=== PATIENT | male | born 1960 | race Caucasian/White ===

== ENCOUNTER 2016-06-19 14:07 | Emergency (ER) | payer OTHER ==
--- NOTE | ~2016-06-19 | CR72 ---
[facility] A Service of [facility] & [facility] RADIOLOGY TEXT RESULTS PATIENT: CULLEN LEAHY LOCATION: [facility] : [birth year] UNIT #: [id number] AGE: [address]: Camilo Ang MD SEX: M ORDER DR: [id number] [facility] [address] [facility]. [place], [place] [address] [id number] E MR#: [id number] Acc #: [id number] NAME: CULLEN LEAHY. : 1960 SEX: M STUDY DATE/TIME: 06/19/2016 13:30 UNIT: [facility] ROOM: STUDY DESCRIPTION: CR Chest Single View Portable Attending Physician: Camilo Ang M.D. Ordering Physician: Camilo Ang M.D. Primary Care Physician: No Primary Care Physician MEDICAL IMAGING REPORT This report is preliminary unless electronic signature is present EXAM Portable chest, 2 view, 06/19/2016. COMPARISON STUDIES 09/17/2011 HISTORY Chest pain and short of air for 1 day. FINDINGS A single AP portable view of the chest shows both lungs to be clear. The heart is normal in size. The mediastinal contour is normal. No significant bone abnormalities are seen. IMPRESSION Normal portable chest. Dictated by... Anil Alexandra M.D. THIS IS AN ELECTRONICALLY VERIFIED REPORT Anil Alexandra M.D. at 06/19/2016 3:51 PM TEE/catherine TD: 06/19/2016 15:20 JOB #: [id number] MEDICAL IMAGING REPORT Page 1 of 1 COPY
--- NOTE | ~2016-06-19 | EKG ---
PATIENT: CULLEN LEAHY UNIT #: [id number] Ventricular Rate: 68 BPM Atrial Rate: 68 BPM P-R Interval: 148 ms QRS Duration: 86 ms Q-T Interval: 384 ms QTC Calculation(Bezet): 408 ms P [place]: 54 degrees Calculated R [place]: 14 degrees Calculated T [place]: 46 degrees Diagnosis Line: Normal sinus rhythm Diagnosis Line: Normal ECG Diagnosis Line: No previous ECGs available Diagnosis Line: Confirmed by ORA HODGES MD ([id number]) on Diagnosis Line: 06/20/2016 11:06:14 PM INTERPRETING MD: RACQUEL
--- NOTE | ~2016-06-19 | CT71 ---
[facility] A Service of [facility] RADIOLOGY TEXT RESULTS PATIENT: CULLEN LEAHY LOCATION: [facility] : 64 UNIT #: [id number] AGE: [address]: Camilo Ang MD SEX: M ORDER DR: [id number] [place] [id number] [facility]. [place], [place] [address] [id number] E MR#: [id number] Acc #: [id number] NAME: CULLEN LEAHY. : 1960 SEX: M STUDY DATE/TIME: 06/19/2016 14:49 UNIT: [facility] ROOM: STUDY DESCRIPTION: CT Head Wo Contrast Attending Physician: Camilo Ang M.D. Ordering Physician: Camilo Ang M.D. MEDICAL IMAGING REPORT This report is preliminary unless electronic signature is present EXAM Head CT without contrast 06/19/2016 HISTORY Tingling in left hand with dizziness beginning this morning. TECHNIQUE Axial images were obtained without contrast. This CT exam was performed with one or more of the following radiation dose reduction techniques: automatic exposure control, adjustment of mA and/or kV according to patient size, and iterative reconstruction. FINDINGS Axial noncontrast images were obtained from the skull base to the vertex. Ventricular size and configuration are normal. There is no evidence of acute infarct or hemorrhage. There are no extra-axial fluid collections. No mass lesion or mass effect is seen. There are no skull fractures. IMPRESSION Normal noncontrast head CT. Dictated by... Serg French M.D. THIS IS AN ELECTRONICALLY VERIFIED REPORT Serg French M.D. at 06/20/2016 10:15 AM YAN/jarad TD: 06/19/2016 16:20 JOB #: [id number] MEDICAL IMAGING REPORT [facility] A Service [facility] RADIOLOGY TEXT RESULTS PATIENT: CULLEN LEAHY LOCATION: [facility] : [birth year] UNIT #: [id number] AGE: [address]: Camilo Ang MD SEX: M ORDER DR: Page 1 of 1 COPY
[2016-06-19 13:22] LABS: BASOPHIL# 0.1 X10e3 (0-0.3); BASOPHIL% 0.6 % (0-2.5); EOSINOPHIL# 0.2 X10e3 (0-0.7); EOSINOPHIL% 2.5 % (0.0-7.0); HEMATOCRIT 46.7 % (38.0-50.0); HEMOGLOBIN 15.6 gm/dL (13.0-16.0); LYMPHOCYTE# 2.6 X10e3 (1.0-3.5); LYMPHOCYTE% 31.9 % (17.0-45.0); MEAN CELL VOLUME 95.7 FL (83-96); MEAN CORPUSCULAR HGB CONC 33.5 g/dL (30-36); MEAN PLATELET VOLUME 7.8 FL (6.5-11.5); MONOCYTE# 0.5 X10e3 (0-1.0); NEUTROPHIL# 4.8 X10e3 (1.5-7.1); PLATELET COUNT 187 X10e3 (140-420); RED BLOOD COUNT 4.87 X10e (3.90-5.60); RED CELL DISTRIBUTION WIDTH 13.9 % (11.0-15.5); WHITE BLOOD COUNT 8.1 X10e3 (4.0-10.5)
[2016-06-19 13:26] LABS: DIFF IND NO
[2016-06-19 13:39] LABS: POC - CKMB <1.0 ng/mL (0.0-7.9); POC - TROPONIN <0.05 ng/mL (<=0.05)
[2016-06-19 13:47] LABS: ALBUMIN SERUM 4.5 g/dL (3.5-5.0); BILIRUBIN, DIRECT 0.1 mg/dL (0.0-0.2); BILIRUBIN,INDIRECT 0.7 mg/dL (0.0-0.9); BILIRUBIN,TOTAL 0.8 mg/dL (0.2-2.0); CALCIUM SERUM 8.9 mg/dL (8.4-10.2); POTASSIUM 3.6 mmol/L (3.5-5.1); PROTEIN TOTAL SERUM 7.4 g/dL (6.0-8.3)
[~2016-06-19 14:07] MED LIST: ADVIL200 M2 PO; ATARAX PO; LISINOPRIL20 MG PO; PREDNISONE50 MG PO; SEROQUEL XR400 M1 PO; VIBRAMYCIN100 M1 PO; ZOLOFT PO
[2016-06-19 16:09] LABS: URINE SOURCE CLEAN CATCH
[2016-06-19 16:23] LABS: URINE APPEARANCE CLEAR; URINE BILIRUBIN NEG (NEG); URINE BLOOD NEG (NEG); URINE COLOR YELLOW; URINE GLUCOSE NEG (NEG); URINE KETONE NEG (NEG); URINE LEUKOCYTE ESTERASE NEG (NEG); URINE NITRATE NEG (NEG); URINE PH 6.5 (5-8); URINE PROTEIN NEG (NEG); URINE SPECIFIC GRAVITY 1.013 (1.003-1.035)
[2016-06-19 16:27] LABS: CULTURE INDICATED? NO
== END 2016-06-19 17:00 | disposition home or self-care (01) ==
LOC: CED 14:07
PROVIDERS: Emergency Medicine
DX: R20.0 Anesthesia of skin (principal); R53.1 Weakness
CPT/HCPCS: 36415; 70450; 71010; 80048; 80076; 81003; 82553; 84484; 85025; 93005; 96360; 99284

== ENCOUNTER 2016-08-22 07:11 | Inpatient (IN) | payer OTHER ==
--- NOTE | ~2016-08-22 | CR7 ---
[facility] A Service of [facility] RADIOLOGY TEXT RESULTS PATIENT: CULLEN LEAHY LOCATION: [facility] : [birth year] UNIT #: [id number] AGE: [address]: Jose A Feliciano MD SEX: M ORDER DR: [id number] [facility] [address] [facility]. [place], [place] [address] [id number] I MR#: [id number] Acc #: [id number] NAME: CULLEN LEAHY : 1960 SEX: M STUDY DATE/TIME: 08/22/2016 17:55 UNIT: [facility] ROOM: [facility] STUDY DESCRIPTION: CR Abdomen Single AP View Attending Physician: Jose A Feliciano Jr., M.D. Ordering Physician: Jose A Feliciano Jr., M.D. Primary Care Physician: No Primary Care Physician MEDICAL IMAGING REPORT This report is preliminary unless electronic signature is present EXAM AP view of the abdomen. COMPARISON CT abdomen and pelvis on the same date at 8:59 a.m. INDICATION 56-year-old male with abdominal pain since this morning. Small bowel obstruction. FINDINGS Retained contrast is seen within the small bowel, small bowel loops measuring up to 3.8 cm in caliber in the right abdomen. Gas is again noted in the rectal vault and remainder of the colon. Degenerative disc disease L4-L5 and L5-S1 again noted with associated degenerative endplate change. IMPRESSION As compared to CT from earlier today, there is persistent abnormal dilatation of the small bowel, most consistent with small bowel obstruction. There is persistent gas seen within the colon and rectal vault suggesting a partial mechanical obstruction. Close clinical and imaging followup recommended. Dictated by... Musa Boyd M.D. THIS IS AN ELECTRONICALLY VERIFIED REPORT Musa Boyd M.D. at 08/24/2016 10:20 PM KIM/catherine [facility] A Service [facility] RADIOLOGY TEXT RESULTS PATIENT: CULLEN LEAHY LOCATION: [facility] : [birth year] UNIT #: [id number] AGE: [address]: Jose A Feliciano MD SEX: M ORDER DR: TD: 08/23/2016 03:45 JOB #: [id number] MEDICAL IMAGING REPORT Page 1 of 1 COPY
--- NOTE | ~2016-08-22 | CT2 ---
[facility] A Service of [facility] & [facility] RADIOLOGY TEXT RESULTS PATIENT: CULLEN LEAHY LOCATION: [facility] 226-01 : [birth year] UNIT #: [id number] AGE: [address]: Jose A Feliciano MD SEX: M ORDER DR: [id number] [address] [address] [id number] I MR#: [id number] Acc #: [id number] NAME: CULLEN LEAHY. : 1960 SEX: M STUDY DATE/TIME: 08/22/2016 8:50 UNIT: SEDOF ROOM: [id number] STUDY DESCRIPTION: CT Abd and Pelv W Cont Attending Physician: Jose A Feliciano Jr., M.D. Ordering Physician: Elvis Haji M.D. Primary Care Physician: No Primary Care Physician MEDICAL IMAGING REPORT This report is preliminary unless electronic signature is present. EXAM Abdomen and pelvis CT with contrast HISTORY Abdominal pain since lifting something heavy yesterday. TECHNIQUE Axial imaging was obtained through the abdomen pelvis with oral and intravenous contrast. 100 mL of Isovue was used. This CT exam was performed with one or more of the following radiation dose reduction techniques: automatic exposure control, adjustment of mA and/or kV according to patient size, and iterative reconstruction. FINDINGS No upper abdominal solid organ abnormalities are seen. The stomach is distended to a moderate degree. There are several distended small bowel loops in the mid abdomen. Maximum diameter approximately 3 cm. The distal ileum and colon are nondilated. Findings are suggestive of a mechanical small bowel obstruction. The transition point appears to be in the mid ileum just below the umbilicus. This is most likely secondary to an adhesion. No suspicious masses or fluid collections are noted. Postoperative changes of aortic grafting are seen from the infrarenal abdominal aorta to both femoral arteries. No evidence of graft occlusion. IMPRESSION 1. Mechanical small-bowel obstruction. The transition point occurs along the anterior wall of the peritoneal cavity at the umbilicus, probably at the level of the mid ileum. Moderate distension of small bowel proximal to this point. 2. No evidence of fluid collection. No active inflammatory process is seen. 3. There is postoperative change in the abdominal aorta with a satisfactory postoperative appearance. [facility] A Service of [facility] & [facility] RADIOLOGY TEXT RESULTS PATIENT: CULLEN LEAHY LOCATION: [facility] 226-01 : [birth year] UNIT #: [id number] AGE: [address]: Jose A Feliciano MD SEX: M ORDER DR: Dictated by... Serg French M.D. THIS IS AN ELECTRONICALLY VERIFIED REPORT Serg French M.D. at 08/22/2016 4:49 PM YAN/bob TD: 08/22/2016 16:13 JOB #: [id number] MEDICAL IMAGING REPORT Page 1 of 1
--- NOTE | ~2016-08-22 | CR4 ---
[facility] A Service of [facility] & [facility] RADIOLOGY TEXT RESULTS PATIENT: CULLEN LEAHY LOCATION: A 226-01 : [birth year] UNIT #: [id number] AGE: [address]: Jose A Feliciano MD SEX: M ORDER DR: [id number] [place] [id number] [facility]. [place], [place] [address] [id number] I MR#: [id number] Acc #: [id number] NAME: CULLEN LEAHY. : 1960 SEX: M STUDY DATE/TIME: 08/24/2016 12:26 UNIT: C2A ROOM: 226 STUDY DESCRIPTION: CR Abdomen Flat Upright or Dec Attending Physician: Jose A Feliciano Jr., M.D. Ordering Physician: Eric Aguila M.D. Primary Care Physician: No Primary Care Physician MEDICAL IMAGING REPORT This report is preliminary unless electronic signature is present EXAM Flat and upright abdomen, 08/24/16 INDICATIONS A 56-year-old male with constipation, abdominal pain and small bowel obstruction symptoms 3 days. FINDINGS Upright and supine views of the abdomen were performed and compared with 08/22/2016 FINDINGS Upright view demonstrates air fluid levels within what appear to be dilated small bowel loops in the left midabdomen and left upper quadrant measuring up to 4.3 cm. Additional dilated small bowel loops in the left midabdomen and left lower quadrant and probably the left upper quadrant. There is oral contrast material within the colon extending to the level of the descending colon. Imaging features are suspicious for a small bowel obstruction which may represent an incomplete or partial small bowel obstruction, based on the presence of oral contrast in the colon. There is air within the rectum. No mass effect. There are degenerative changes in the lumbar spine. IMPRESSION Findings suspicious for partial or incomplete small bowel obstruction with dilated air-filled small bowel loops in the left hemiabdomen. There is oral contrast material in the colon. No evidence of free air. STAT * RESULT Dictated by... [facility] A Service of [facility] & [facility] RADIOLOGY TEXT RESULTS PATIENT: CULLEN LEAHY LOCATION: [place] [address] : [birth year] UNIT #: [id number] AGE: [address]: Jose A Feliciano MD SEX: M ORDER DR: Rolando Dyer M.D. THIS IS AN ELECTRONICALLY VERIFIED REPORT Rolando Dyer M.D. at 08/24/2016 4:12 PM Cliff TD: 08/24/2016 15:16 JOB #: [id number] MEDICAL IMAGING REPORT Page 1 of 1 COPY
--- NOTE | ~2016-08-22 | DS ---
Unit #: [id number] #: [id number] Patient: CULLEN LEAHY [id number] [address] [place], [place] [address] [id number] I MR#: [id number] NAME: CULLEN LEAHY. ROOM: 226 Age: 56 Sex: M Admission Date: 08/22/2016 : 1960 Discharge Date: 08/25/2016 Attending Physician: Jose A Feliciano Jr., M.D. Primary Care Physician: No Primary Care Physician DISCHARGE SUMMARY DISCHARGE DIAGNOSES Partial small bowel obstruction secondary to adhesions clinically. OPERATIVE PROCEDURES None. DISCHARGE MEDICATIONS Home medications. HISTORY OF PRESENT ILLNESS AND HOSPITAL COURSE This 56-year-old, white male presented with crampy abdominal pain, nausea, and a CAT scan, which showed what appeared to be small bowel obstruction. The patient had multiple previous abdominal operations, most of them vascular. He did pass some gas the next day, but his bowels did not move. We advanced his diet. His symptoms seemed to resolve; however, we did do a KUB on him 48 hours later. It still showed some persistent air fluid levels. It did show contrast from the CT into the colon. After a long discussion with the patient, since he is asymptomatic at present, he wants to go home because of some domestic issues. We wanted him to stay for a small bowel followthrough, but, because he insisted on going home, we will go ahead and let him do so at this time. He will come back to see us either in the office or the emergency room on an as needed basis. Dictated by... Laury Miner/ozzie TD: 08/27/2016 07:50 JOB #: [id number] DISCHARGE SUMMARY Page 1 of 1 X Eric Aguila MD X DISCHARGE SUMMARY
--- NOTE | ~2016-08-22 | HP ---
Unit #: [id number] #: [id number] Patient: CULLEN LEAHY [id number] [facility]. [place] [id number] [facility]. [place], [place] [address] [id number] I MR#: [id number] NAME: CULLEN LEAHY ROOM: 226 Age: 56 Sex: M Admission Date: 08/22/2016 : 1960 Attending Physician: Jose A Feliciano Jr., M.D. Primary Care Physician: No Primary Care Physician HISTORY AND PHYSICAL CHIEF COMPLAINT Crampy abdominal pain with nausea. HISTORY OF PRESENT ILLNESS The patient is a 56-year-old white male who was in normal good health up until yesterday when he ate pizza and thereafter developed crampy abdominal pain mostly in the mid epigastrium of his abdomen and central abdomen. He had some nausea without significant vomiting but he went home and continued to have pain through the night and presented to the emergency room at [facility] to be checked for this. He was noted on CT scan to have evidence of possibly some small bowel obstruction. There were no other specific abnormalities. PAST MEDICAL HISTORY The patient has a past history for cardiac problems, hypertension, COPD, severe back problems with back pain chronically and a psych history of bipolar disorder. PAST SURGICAL HISTORY He has had surgery in the past with a triple A repair, bypass graft in his leg and hernia repair laparoscopically. MEDICATIONS He is on Seroquel, Zoloft and lisinopril. ALLERGIES None known. TRANSFUSIONS No history of transfusion reaction in the past. FAMILY HISTORY Noncontributory according to the patient. SOCIAL HISTORY The patient is single, smokes approximately two packs of cigarettes per day and is a nondrinker for the past 16 years. He used to be a heavy drinker and also does state that he smokes marijuana intermittently. He used to take drugs in the past but has not done any drugs over the last few years. IMMUNIZATIONS Up to date. Unit #: [id number] #: [id number] Patient: CULLEN LEAHY REVIEW OF SYSTEMS Ten-system review has been performed which is nonremarkable except as noted in the present illness. PHYSICAL EXAMINATION VITAL SIGNS: The patient is afebrile. Vital signs are normal. Pulse 65. GENERAL DESCRIPTION: Patient well-developed, thin, 56-year-old white male in no acute distress. HEENT: Nonremarkable. NECK: Supple. CHEST: Shows equal bilateral expansion with bilateral equal breath sounds. Lungs are clear bilaterally. HEART: Regular rhythm, without murmurs or gallops. There is no cardiomegaly clinically. ABDOMEN: Soft, nondistended, nontender, without masses or organomegaly. There is no ascites and no obvious hernias. EXTREMITIES: Full range of motion without limitation. There is no evidence of peripheral edema. BACK EXAM: There is no CVA tenderness. NEUROLOGICAL: Grossly intact. DIAGNOSTIC STUDIES LABORATORY VALUES: White blood cell count was normal. IMAGING: CT is noted above, did reveal evidence of possible small bowel obstruction. IMPRESSION The patient may have possible small bowel obstruction secondary to adhesions. He is presently refusing an NG tube and the plan will be to hydrate him up and check his repeat abdominal x-rays and make a decision with regard to the possibility of surgery in the future. Dictated by Jose A Feliciano Jr., MDionisio. CHRISTIANO/yusra TD: 08/22/2016 20:48 JOB #: [id number] HISTORY AND PHYSICAL Page 1 of 1 X Jose A Feliciano MD HISTORY AND PHYSICAL
[2016-08-22 07:52] LABS: BASOPHIL# 0.1 X10e3 (0-0.3); BASOPHIL% 1.2 % (0-2.5); EOSINOPHIL# 0.2 X10e3 (0-0.7); EOSINOPHIL% 2.4 % (0.0-7.0); HEMATOCRIT 45.7 % (38.0-50.0); HEMOGLOBIN 15.6 gm/dL (13.0-16.0); LYMPHOCYTE# 1.7 X10e3 (1.0-3.5); LYMPHOCYTE% 18.4 % (17.0-45.0); MEAN CELL VOLUME 96.5 FL (83-96); MEAN CORPUSCULAR HEMOGLOBIN 32.9 PG (28-34); MEAN PLATELET VOLUME 8.3 FL (6.5-11.5); MONOCYTE# 0.5 X10e3 (0-1.0); MONOCYTE% 5.6 % (3.0-12.0); NEUTROPHIL# 6.9 X10e3 (1.5-7.1); NEUTROPHIL% 72.4 % (40-75); PLATELET COUNT 173 X10e3 (140-420); RED BLOOD COUNT 4.74 X10e (3.90-5.60); RED CELL DISTRIBUTION WIDTH 14.1 % (11.0-15.5); WHITE BLOOD COUNT 9.5 X10e3 (4.0-10.5)
[2016-08-22 07:55] LABS: DIFF IND NO
[2016-08-22 08:11] LABS: ALBUMIN SERUM 4.1 g/dL (3.5-5.0); BILIRUBIN, DIRECT 0.1 mg/dL (0.0-0.2); BILIRUBIN,INDIRECT 0.3 mg/dL (0.0-0.9); BILIRUBIN,TOTAL 0.4 mg/dL (0.2-2.0); CREATININE SERUM 0.9 mg/dL (0.6-1.4); GLOM FILT RATE Estimated 96.5 mL/min (>60); POTASSIUM 3.8 mmol/L (3.5-5.1); PROTEIN TOTAL SERUM 7.1 g/dL (6.0-8.3)
[2016-08-22 10:53] LABS: URINE SOURCE CLEAN CATCH
[2016-08-22 10:55] LABS: URINE APPEARANCE CLEAR; URINE BILIRUBIN NEG (NEG); URINE BLOOD NEG (NEG); URINE COLOR YELLOW; URINE GLUCOSE NEG (NORM); URINE KETONE NEG (NEG); URINE LEUKOCYTE ESTERASE NEG (NEG); URINE NITRATE NEG (NEG); URINE PROTEIN NEG (NEG); URINE SPECIFIC GRAVITY <=1.005 (1.003-1.035)
[2016-08-22 11:00] LABS: MICRO INDICATED? NO
[2016-08-23 06:52] LABS: BASOPHIL% 0.5 % (0-2.5); EOSINOPHIL# 0.2 X10e3 (0-0.7); EOSINOPHIL% 2.3 % (0.0-7.0); HEMATOCRIT 46.1 % (38.0-50.0); LYMPHOCYTE# 1.7 X10e3 (1.0-3.5); LYMPHOCYTE% 16.9 % (17.0-45.0); MEAN CELL VOLUME 97.6 FL (83-96); MEAN CORPUSCULAR HEMOGLOBIN 31.7 PG (28-34); MEAN CORPUSCULAR HGB CONC 32.5 g/dL (30-36); MEAN PLATELET VOLUME 9.1 FL (6.5-11.5); MONOCYTE# 0.6 X10e3 (0-1.0); MONOCYTE% 5.7 % (3.0-12.0); NEUTROPHIL# 7.7 X10e3 (1.5-7.1); NEUTROPHIL% 74.6 % (40-75); PLATELET COUNT 164 X10e3 (140-420); RED BLOOD COUNT 4.73 X10e (3.90-5.60); RED CELL DISTRIBUTION WIDTH 14.1 % (11.0-15.5); WHITE BLOOD COUNT 10.3 X10e3 (4.0-10.5)
[2016-08-23 07:06] LABS: ALBUMIN SERUM 3.5 g/dL (3.5-5.0); BILIRUBIN,TOTAL 0.5 mg/dL (0.2-2.0); BUN/CREATININE RATIO 17.14; CALCIUM SERUM 8.9 mg/dL (8.4-10.2); CREATININE SERUM 0.7 mg/dL (0.6-1.4); POTASSIUM 3.7 mmol/L (3.5-5.1); PROTEIN TOTAL SERUM 5.8 g/dL (6.0-8.3)
[2016-08-23 07:14] LABS: DIFF IND NO
[2016-08-25 06:50] LABS: HEMATOCRIT 46.5 % (38.0-50.0); HEMOGLOBIN 15.2 gm/dL (13.0-16.0); MEAN CELL VOLUME 96.9 FL (83-96); MEAN CORPUSCULAR HEMOGLOBIN 31.7 PG (28-34); MEAN CORPUSCULAR HGB CONC 32.7 g/dL (30-36); MEAN PLATELET VOLUME 8.6 FL (6.5-11.5); RED BLOOD COUNT 4.8 X10e (3.90-5.60); RED CELL DISTRIBUTION WIDTH 14.2 % (11.0-15.5); WHITE BLOOD COUNT 9.3 X10e3 (4.0-10.5)
[2016-08-25 07:24] LABS: ALBUMIN SERUM 3.7 g/dL (3.5-5.0); BILIRUBIN,TOTAL 0.6 mg/dL (0.2-2.0); BUN/CREATININE RATIO 8.75; CALCIUM SERUM 8.8 mg/dL (8.4-10.2); CREATININE SERUM 0.8 mg/dL (0.6-1.4); GLOM FILT RATE Estimated 101.3 mL/min (>60); POTASSIUM 3.6 mmol/L (3.5-5.1); PROTEIN TOTAL SERUM 6.3 g/dL (6.0-8.3)
== END 2016-08-25 09:18 | disposition home or self-care (01) | DRG 390 ==
LOC: SED 07:11 → SEDOF 10:30 → SED 10:31 → SEDOF 10:31 → C2A 15:32
PROVIDERS: Emergency Medicine; Surgery
DX: K56.5 Intestinal adhesions [bands] with obstruction (postinfection) (principal); I10 Essential (primary) hypertension; J44.9 Chronic obstructive pulmonary disease, unspecified; F31.9 Bipolar disorder, unspecified; F17.210 Nicotine dependence, cigarettes, uncomplicated
CPT/HCPCS: 36415; 74000; 74020; 74177; 80048; 80053; 80076; 81003; 83690; 85025; 85027; 99285; J1170; J2060; J2270; J2405; Q9967

== ENCOUNTER 2016-10-15 18:45 | Emergency (ER) | payer OTHER | END 2016-10-15 19:36 | disposition home or self-care (01) | LOC: SED 18:45 | DX: S01.112A Laceration without foreign body of left eyelid and periocular area, initial encounter (principal); F17.210 Nicotine dependence, cigarettes, uncomplicated; Z79.899 Other long term (current) drug therapy; X58.XXXA Exposure to other specified factors, initial encounter; Y92.009 Unspecified place in unspecified non-institutional (private) residence as the place of occurrence of the external cause | CPT/HCPCS: 12011; 99283 ==

== ENCOUNTER 2016-10-28 07:49 | Emergency (ER) | payer OTHER | END 2016-10-28 08:30 | disposition home or self-care (01) | LOC: SED 07:49 | DX: S01.112D Laceration without foreign body of left eyelid and periocular area, subsequent encounter (principal); Z79.899 Other long term (current) drug therapy; Z88.8 Allergy status to other drugs, medicaments and biological substances; X58.XXXD Exposure to other specified factors, subsequent encounter | CPT/HCPCS: 99281 ==